=== PATIENT | female | born 1975 | race Caucasian/White ===

== ENCOUNTER 2021-11-14 13:44 | Outpatient (CLI) | payer BC, SELFPAY ==
--- NOTE | 2021-11-14 14:00 | CRLHL7_ITS ---
For Patients: As a result of the Cures Act, medical imaging exams and procedure reports are released immediately into your electronic medical record. You may view this report before your referring provider. If you have questions, please contact your health care provider. INDICATION: Venous varicosities. COMPARISON: None available TECHNIQUE: A duplex venous ultrasound exam was performed of the right lower extremity using sesay scale imaging, color Doppler and spectral Doppler analysis. Pre- and post compression images were obtained per site specific protocol. The size of the superficial veins were recorded, along with reflux times if applicable. FINDINGS: In the right lower extremity deep venous system, there is normal compressibility, color Doppler venous blood flow and augmentation within the common femoral vein, superficial femoral vein, popliteal vein, and posterior tibial veins. The greater and lesser saphenous veins of the right lower extremity are also patent and compressible with intact color Doppler venous blood flow. The greater saphenous vein measures 0.7 cm at the saphenofemoral junction where it is competent. The greater saphenous vein is competent throughout the thigh and calf. The lesser saphenous vein is competent throughout. The saphenopopliteal junction is not identified. IMPRESSION: 1. No deep or superficial venous thrombosis. 2. No venous insufficiency in the right lower extremity. Dictated by Too Ambrosio MD @ 11/14/2021 3:15:13 PM (Electronically Signed)
== END 2021-11-14 13:45 | disposition home or self-care (01) ==
PROVIDERS: PCP Family Medicine; Visit Provider Family Medicine
DX: I83.811 Varicose veins of right lower extremity with pain (principal)
CPT/HCPCS: 93971

== ENCOUNTER 2022-11-16 15:04 | Outpatient (CLI) | payer BC, SELFPAY | END 2022-11-16 15:05 | disposition home or self-care (01) | PROVIDERS: PCP Family Medicine; Visit Provider Family Medicine | DX: R53.83 Other fatigue (principal); E66.9 Obesity, unspecified; F41.9 Anxiety disorder, unspecified | CPT/HCPCS: 80053; 82306; 82607; 84443 ==

== ENCOUNTER 2024-10-11 21:52 | Emergency (ER) | payer BC, SELFPAY ==
--- OUTSIDE RECORDS SUMMARY | 2024-10-11 21:54 | XMS_ITS | Clinical Summary ---
Author Organization [facility] Address [address] [place] [address] Care Team Providers Care Rug Shampooer Name Role Phone Clinic, [facility] [place] [facility] Pro vider Allergies No known active allergies Medications No known medications Active Problems Problem Noted Date Diagnosed Date Varicose veins of lower extremity with pain 09/13 Resolved Problems Problem Noted Date Diagnosed Date Resolved Date Cholelithiasis 03/19/2014 02/21/2017 Immunizations Immunization Administration Dates Next Due Influenza, IIV3 (Age >=3 years) 02/03/2009 Influenza, IIV4 03/09/2019 Tdap 01/30/2013 Family History Medical History Relation Name Comments Diabetes Father Hypertension Father Thyroid Disease Father Diabetes Mother Hypertension Mother Relation Name Status Comments Father Mother Social History Tobacco Use Types Packs/Day Years Used Date Smoking Tobacco: Never Smokeless Tobacco: Never Tobacco Cessation:Counseling Given: Yes Alcohol Use Standard Drinks/Week Comments No 0 (1 standard drink = 0.6 oz pur e alcohol) Comments No Sex and Gender Information Value Date Recorded Sex Assigned at Not on file Legal Sex Female 7:05 AM BIG DATA DEVELOPER Gender Identity Not on file Sexual Orientation Not on file 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 Not on file Not on file Not on file Obstetrics History Last Filed Vital Signs Vital Sign Reading Time Taken Comments Blood Pressure 140/77 01/02/2021 1:45 PM CDT Pulse 76 01/02/2021 1:45 PM CDT Temperature 36.3 C (97.3 F) 01/02/2021 1:45 PM CDT Respiratory Rate 16 01/02/2021 1:45 PM CDT Oxygen Saturation 99% 01/02/2021 1:45 PM CDT Inhaled Oxygen Concentration - - Weight 79.4 kg (175 lb) 01/02/2021 1:45 PM CDT Height 158.8 cm (5' 2.5) 02/21/2017 11:09 AM CS T Body Mass Index 31.5 02/21/2017 11:09 AM BIG DATA DEVELOPER Plan of Treatment Health Maintenance Due Date Last Done Comments Depression screening for age 12+ 1989 HIV for age 15-65 1992 Hepatitis C screening for age 18-79 12/29/1995 Hepatitis B series for 19+ (1 of 3 - 19+ 3-dose series) 1996 BMI (ht and wt on same day) for age 18+ 02/21/2018 02/21/2017 Colonoscopy through age 75 2022 Lipids for age 45-75 2022 Mammogram for age 45-75 2022 Tetanus booster 01/30/2023 01/30/2013 Pap test for age 21-65 08/13/2023 , 08/12/2020, 11/29/2015, Additional history exists COVID-19 vaccine series ( season) 2023 06/17/2020, 05/20/2020 Influenza Vaccine (Season Ended) 2024 03/09/2019, 02/03/2009 Tdap Completed 01/30/2013 Pneumococcal series for age 6-49 Aged Out No longer eligible based on patient's age to complete this topic Procedures Procedure Name Priority Date/Time Associated Diagnosis Comments MULTI PUNCH OPERATOR THIN PREP PAP SCREEN IMAGED Routine 08/12/2020 9:30 AM CDT from Last 3 Months or Most Recently Relevant to Health Maintenance Results * MULTI PUNCH OPERATOR THIN PREP PAP SCREEN IMAGED (08/12/2020 9:30 AM CDT) Case Report Gynecologic Cytology Report Case: [id number] Authorizing Provider: Eliane Cade MD Collected: 08/12/2020 0930 Ordering Location: [facility] Received: 08/15/2020 0744 First Screen: Yodit Albarran Specimen: MULTI PUNCH OPERATOR ThinPrep Vial Screening, Cervical/Vaginal 08/22/2020 10:03 AM CDT [facility] INTERPRETATION/ RESULT NEGATIVE FOR INTRAEPITHELIAL LESION OR MALIGNANCY (NIL) (none) 08/22/2020 10:03 AM T [facility] at 1003 CDT SPECIMEN ADEQUACY Satisfactory for evaluation Endocervical component present 08/22/2020 10:03 AM CDT [facility] HPV REQUEST HPV and PAP 08/22/2020 10:03 AM CDT [facility] Date of LMP 11/29/2015 08/22/2020 10:03 AM CDT [facility] Last Pap Date 08/22/2020 10:03 AM T [facility] Comment:Normal Menstrual Status 08/22/2020 10:03 AM T [facility] Comment:1 year ago Additional Information 08/22/2020 10:03 AM T [facility] Comment: Interpreted at [facility], Central Laboratory - [address], [place] [address] Automated Review Successful 08/22/2020 10:03 AM T [facility] Comment:Specimen processed s uccessfully by automated appointment clerk device, ThinPrep Imaging System, [employer] ANCILLARY TESTING MULTI PUNCH OPERATOR HPV Ordered, Please see separate report 08/22/2020 10:03 AM T [facility] Note The pap test is a screening technique, not a diagnostic procedure. It is used primarily to screen for squamous cancers and precursor lesions. Published studies have shown that it is subject to both false negative and false positive results. The pap test should not be used as the sole means to diagnose or exclude pre-malignant and malignant lesions. 08/22/2020 10:03 AM T [facility] Other (Cervical/Vagina l) 08/12/2020 9:30 AM CDT 08/15/2020 7:44 AM CDT Eliane Cade MD PATHOLOGY/CYTOLOGY Final Result [facility] [address] [place] [address], from Last 3 Months or Most Recently Relevant to Health Maintenance Insurance [facility] Advance Directives * Full Code (Latest Code Status on File) Date Activated Date Inactivated Comments 03/30/2014 11:45 AM 03/30/2014 5:40 PM * Full Code Date Activated Date Inactivated Comments 03/30/2014 8:22 AM 03/30/2014 11:45 AM Care Teams Rug Shampooer Relationship Specialty Start Date End Date Clinic, [address] [address] PCP - General 11/26/06
[2024-10-11 21:57] VITALS: BP 169/102; PULSE 80; RESP 18; TEMP 35.8; O2SAT 98
--- NOTE | 2024-10-12 00:07 | ED.GENADULT ---
HPI - General Adult General Chief complaint: Extremity Pain/Injury, Lower Stated complaint: Leg Laceration Time Seen by Provider: 10/11/24 23:33 Source: patient Mode of arrival: ambulatory Limitations: no limitations History of Present Illness HPI narrative: 48-year-old female presenting today with a laceration to the anterior left palomino. Patient was in [place] lost her footing and fell forward hitting her palomino on a rock. Denies hitting head or losing consciousness. Last tetanus was in 2012. Related Data Previous Rx's ?Medication ?Instructions ?Recorded fluoxetine 10 mg capsule 10 mg PO QDAY #90 caps 11/16/22 cephalexin 500 mg capsule 500 mg PO TID 5 days #15 caps 10/12/24 Allergies Allergy/AdvReac Type Severity Reaction Status Date / Time No Known Drug Allergies Allergy Verified 10/09/24 10:03 Review of Systems Status of ROS: Reports: 6 or more systems reviewed and unremarkable except as noted in History and below [facility] Medical History Mixed stress and urge urinary incontinence ?N39.46 - Mixed incontinence (ICD-10) Obesity (BMI 35.0-39.9 without comorbidity) ?E66.9 - Obesity, unspecified (ICD-10) Right leg pain ?M79.604 - Pain in right leg (ICD-10) Anxiety ?F41.9 - Anxiety disorder, unspecified (ICD-10) Varicose veins of lower extremity ?I83.90 - Asymptomatic varicose veins of unspecified lower extremity (ICD-10) Pain in pelvis ?R10.2 - Pelvic and perineal pain (ICD-10) Gestational diabetes (2008) ?O24.419 - Gestational diabetes mellitus in , unspecified control (ICD-10) Surgical History Status post dilation and curettage (02/2020) ?Z98.890 - Other specified postprocedural states (ICD-10) History of vein stripping (2014) ?Z98.890 - Other specified postprocedural states (ICD-10) History of suburethral sling procedure (02/2020) ?Z98.890 - Other specified postprocedural states (ICD-10) History of cholecystectomy (2009) ?Z90.49 - Acquired absence of other specified parts of digestive tract (ICD-10) History of appendectomy (2010) ?Z90.49 - Acquired absence of other specified parts of digestive tract (ICD-10) Family History Mother Asthma Diabetes Father Diabetes High blood pressure Thyroid disease Son Epilepsy Other Family history of diabetes mellitus Social History Narrative: Does not drink alcohol from , 6 kids lives in [place] from [place], 2 disabled kids, 1with autism Non-smoker Patient is a homemaker. Smoking Status: Former smoker Exam Narrative: Exam Narrative: Well-nourished well-developed patient, anxious. Alert and oriented. Answers questions appropriately. Mood and affect are appropriate. Thoughts are goal oriented and rational. No tangential or magical thinking noted. Patient speaks in full sentences without needing to catch her breath. HEENT: Normocephalic atraumatic. Pupils are equally round reactive to light. Extraocular muscles are intact. Conjunctivae are moist without any icterus noted. Moist mucous membranes. Extremities: Bilateral lower extremities are without edema. Normal DP and PT pulses. Patient has a large laceration of the anterior palomino, V-shaped flap. She can move her ankle without difficulty. Normal DP and PT pulses. Laceration penetrates through the skin but does not penetrate through underlying structures. Skin: Well perfused. Const: Vital Signs, click to edit/add: Vital Signs - 24 hr 10/11/24 21:57 Temperature 96.5 F L Pulse Rate [Left P ulse Oximeter] 80 Respiratory Rate 18 Blood Pressure [Ri ght Upper Arm] 169/102 H Pulse Oximetry 98 Oxygen Delivery Me thod Room Air Course Course ED Course: Area was cleaned in the usual sterile manner and anesthetized with lidocaine. Three horizontal mattress sutures were placed at points of most stress, followed by 12 simple sutures with 3-0 Ethilon. Tetanus shot updated Vital Signs Vital signs: Initial Vital Signs Temperature 96.5 F L 10/11/24 21:57 Temperature Source Temporal Artery Scan 10/11/24 21:57 Pulse Rate 80 10/11/24 21:57 Pulse Rhythm Regular 10/11/24 21:57 Respiratory Rate 18 10/11/24 21:57 Blood Pressure 169/102 H 10/11/24 21:57 Blood Pressure Mean 124 H 10/11/24 21:57 Blood Pressure Position Sitting 10/11/24 21:57 Pulse Oximetry 98 10/11/24 21:57 Oxygen Delivery Method Room Air 10/11/24 21:57 Vital Signs Temperature 96.5 F L 10/11/24 21:57 Pulse Rate 80 10/11/24 21:57 Respiratory Rate 18 10/11/24 21:57 Blood Pressure 169/102 H 10/11/24 21:57 Pulse Oximetry 98 10/11/24 21:57 Oxygen Delivery Method Room Air 10/11/24 21:57 Temperature 96.5 F L 10/11/24 21:57 Pulse Rate 80 10/11/24 21:57 Respiratory Rate 18 10/11/24 21:57 Blood Pressure 169/102 H 10/11/24 21:57 Pulse Oximetry 98 10/11/24 21:57 Oxygen Delivery Method Room Air 10/11/24 21:57 Medical Decision Making MDM Narrative Medical decision making narrative: 48-year-old female large laceration to the anterior palomino sutured in the ED. Will treat the patient with a Keflex t.i.d. for 5 days. 8 tablets of [place] sent home with the patient. We discussed wound hygiene, scarring, signs of infection. Discharge Plan Discharge Clinical Impression: Laceration Patient Disposition: Home, Self-Care Condition: Improved Additional Instructions: Keep wound clean and dry. Do not soak such as taking baths, swimming. Follow-up in approximately 10-14 days for suture removal with your primary care provider. Watch for signs and symptoms of infection including increasing redness of the area, purulent drainage, or fever. If this occurs follow-up right away with your doctor or return to the ER. Elevate leg as much as possible over the next 48 hours. Change dressing daily. Take all antibiotics as prescribed. Can take 1st dose tomorrow. This medication will be sent to your pharmacy. Take pain medications as needed. Will be sent home with hydrocodone-acetaminophen. This is a narcotic pain medication that can cause constipation, dizziness and increased risk of fall. Do not operate heavy machine use when you take this medication. If you take this for more than 2 days, consider taking daily MiraLax to avoid constipation. A tablets of [place] sent to [facility]. Prescriptions: New cephalexin 500 mg capsule 500 mg PO TID 5 Days Qty: 15 0RF No Action fluoxetine 10 mg capsule 10 mg PO QDAY Qty: 90 0RF Follow Up/Referrals: Eliane Cade MD [Primary Care Provider, Family Practice] Stand Alone Forms: [employer] Info Instructions
--- OUTSIDE RECORDS SUMMARY | 2024-10-12 00:15 | XMS_ITS | Clinical Summary ---
Author Organization [facility] Address [address] [place] [address] Care Team Providers Care National Sales Director Name Role Phone Clinic, [facility] [place] [facility] Pro vider Allergies No known [...] on file Legal Sex Female 7:05 AM CROSSING GATEMAN Gender Identity Not on file Sexual Orientation [...] Body Mass Index 31.5 02/21/2017 11:09 AM CROSSING GATEMAN Plan of Treatment Health Maintenance Due Date [...] Procedure Name Priority Date/Time Associated Diagnosis Comments EXPERIENCED TRUCK DRIVER THIN PREP PAP SCREEN IMAGED Routine 08/12/2020 9:30 AM CDT from Last 3 Months or Most Recently Relevant to Health Maintenance Results * EXPERIENCED TRUCK DRIVER THIN PREP PAP SCREEN IMAGED (08/12/2020 9:30 AM CDT) Case Report Gynecologic Cytology Report Case: [id number] Authorizing Provider: Eliane Cade MD Collected: 08/12/2020 0930 Ordering Location: [facility] Received: 08/15/2020 0744 First Screen: Yodit Albarran Specimen: EXPERIENCED TRUCK DRIVER ThinPrep Vial Screening, Cervical/Vaginal 08/22/2020 10:03 AM CDT [facility] INTERPRETATION/ RESULT NEGATIVE FOR INTRAEPITHELIAL LESION OR MALIGNANCY (NIL) (none) 08/22/2020 10:03 AM T [facility] at 1003 CDT SPECIMEN ADEQUACY Satisfactory for evaluation Endocervical component present 08/22/2020 10:03 AM CDT [facility] HPV REQUEST HPV and PAP 08/22/2020 10:03 AM CDT [facility] Date of LMP 11/29/2015 08/22/2020 10:03 AM CDT [facility] Last Pap Date 08/22/2020 10:03 AM T [facility] Comment:Normal Menstrual Status 08/22/2020 10:03 AM T [facility] Comment:1 year ago Additional Information 08/22/2020 10:03 AM T [facility] Comment: Interpreted at [facility], [facility] Laboratory - [address], [place] [address] Automated Review Successful 08/22/2020 10:03 AM T [facility] Comment:Specimen processed s uccessfully by automated tobacco flavorer device, ThinPrep Imaging System, [employer] ANCILLARY TESTING EXPERIENCED TRUCK DRIVER HPV Ordered, Please see separate report 08/22/2020 10:03 AM T [facility] Note The pap test is a [...] and malignant lesions. 08/22/2020 10:03 AM T [facility] Other (Cervical/Vagina l) 08/12/2020 9:30 AM CDT 08/15/2020 7:44 AM CDT Eliane Cade MD PATHOLOGY/CYTOLOGY Final Result [facility] [address] [place] [address], from Last 3 Months or Most Recently Relevant to Health Maintenance Insurance [facility] Advance Directives * Full Code (Latest Code Status on File) Date Activated Date Inactivated Comments 03/30/2014 11:45 AM 03/30/2014 5:40 PM * Full Code Date Activated Date Inactivated Comments 03/30/2014 8:22 AM 03/30/2014 11:45 AM Care Teams National Sales Director Relationship Specialty Start Date End Date Clinic, [address] [address] PCP - General 11/26/06
[2024-10-12] MEDS: TETANUS/DIPHTH/PERTUSSIS 0.5 ML SYRINGE IM (00:46)
[2024-10-12] MEDS: lidocaine HCL 2 % MULTIDOSE 20 ML VIAL INJECTION (01:03)
== END 2024-10-12 00:50 | disposition home or self-care (01) ==
PROVIDERS: Emergency Provider Family Medicine; PCP Family Medicine
DX: S81.812A Laceration without foreign body, left lower leg, initial encounter (principal); W22.09XA Striking against other stationary object, initial encounter
CPT/HCPCS: 12001; 90471; 90715; 99283; 99284

== ENCOUNTER 2024-10-12 17:24 | Emergency (ER) | payer BC, SELFPAY ==
[2024-10-12 17:29] VITALS: BP 154/85; PULSE 65; RESP 18; TEMP 36.4; O2SAT 98; BMI 30.9
--- NOTE | 2024-10-12 19:19 | ED_ITS ---
HPI - Extremity Injury (Lower) General Time Seen by Provider: 19:19 Date Seen: 10/12/24 Chief Complaint: Extremity Pain/Injury, Lower Stated Complaint: pain in left leg/Revisit Time Seen by Provider: 10/12/24 19:18 Source: patient, RN notes reviewed and old records reviewed Mode of arrival: ambulatory Limitations: no limitations History of Present Illness HPI Narrative: This very pleasant 48-year-old female is returning wanting crutches, needing pain management and a work note. She was in the ER yesterday, had a laceration repaired on her left lower extremity. She was given 8 [place] and started on Keflex, had a laceration repaired after a fall in the [place] and hitting a rock with her anterior lower tibia. She felt a little warm this morning but had an episode of vomiting. She does not have any Tylenol or ibuprofen at home. She has went through all the [place]. She has not had a fever after that, is not febrile here. She has not taken the dressing down yet. It does hurt to walk. She is wanting a note for work as she works at [employer] and is walking a lot. Related Data Previous Rx's ?Medication ?Instructions ?Recorded fluoxetine 10 mg capsule 10 mg PO QDAY #90 caps 11/16 cephalexin 500 mg capsule 500 mg PO TID 5 days #15 cap s 10/12/24 Allergies Allergy/AdvReac Type Severity Reaction Status Date / Time No Known Drug Allergies Allergy Verified 10/09/24 10:03 Review of Systems Narrative: As per HPI. [facility] Medical History Mixed stress and urge urinary incontinence ?N39.46 - Mixed incontinence (ICD-10) Obesity (BMI 35.0-39.9 without comorbidity) ?E66.9 - Obesity, unspecified (ICD-10) Right leg pain ?M79.604 - Pain in right leg (ICD-10) Anxiety ?F41.9 - Anxiety disorder, unspecified (ICD-10) Varicose veins of lower extremity ?I83.90 - Asymptomatic varicose veins of unspecified lower extremity (ICD-10) Pain in pelvis ?R10.2 - Pelvic and perineal pain (ICD-10) Gestational diabetes (2009) ?O24.419 - Gestational diabetes mellitus in , unspecified control (I CD-10) Surgical History Status post dilation and curettage (02/2020) ?Z98.890 - Other specified postprocedural states (ICD-10) History of vein stripping (2014) ?Z98.890 - Other specified postprocedural states (ICD-10) History of suburethral sling procedure (02/2020) ?Z98.890 - Other specified postprocedural states (ICD-10) History of cholecystectomy (2009) ?Z90.49 - Acquired absence of other specified parts of digestive tract (ICD- 10) History of appendectomy (2009) ?Z90.49 - Acquired absence of other specified parts of digestive tract (ICD- 10) Family History Mother Asthma Diabetes Father Diabetes High blood pressure Thyroid disease Son Epilepsy Other Family history of diabetes mellitus Social History Narrative: Does not drink alcohol from , 6 kids lives in [place] from [place], 2 disabled kids, 1with autism Non-smoker Patient is a homemaker. Smoking Status: Former smoker Do you use any of these nicotine containing products: None How often do you have a drink containing alcohol: never How often do you have six or more drinks on one occasion: Never AUDIT-C Alcohol total score: 0 Non-prescribed substance use: denies use Exam Const: Vital Signs, click to edit/add: Vital Signs - 24 hr 10/12/24 17:29 Temperature 97.6 F Pulse Rate [Pulse Oximeter] 65 Respiratory Rate 18 Blood Pressure [Ri ght Upper Arm] 154/85 H Pulse Oximetry 98 Oxygen Delivery Me thod Room Air This 48-year-old female is alert, interactive, no apparent distress. She is lying in the bed in exam room 3. CV regular rate and rhythm, no murmur. Lungs clear, breathing easy on room air. Face atraumatic. She has an Dwight wrap around her mid lower extremity on the left. This was taken down. The bandaging underneath was taken down. She has a V flap repaired with sutures. There is some minimal tissue swelling, no significant erythema, no drainage, mild tenderness. Distal CMS is intact. Documenting provider has reviewed patient's vital signs: yes Course Course ED Course: Reviewed with her that the symptoms this morning is likely a side effect of the narcotics. I think at this point it is reasonable to transition to Tylenol and ibuprofen. Will give her 600 mg oral ibuprofen here and she will need to get some Tylenol ibuprofen. We will provide crutches to use for decreasing pain with weight-bearing. She can wean off them as able. We will re-dress the wound with bacitracin. She can start to take this off tomorrow in just use bandaging during the day. I will give her note to be off work the next 3 days to allow this some time for healing. Vital Signs Vital signs: Initial Vital Signs Temperature 97.6 F 10/12/24 17:29 Temperature Source Temporal Artery Scan 10/12/24 17:29 Pulse Rate 65 10/12/24 17:29 Pulse Rhythm Regular 10/12/24 17:29 Respiratory Rate 18 10/12/24 17:29 Blood Pressure 154/85 H 10/12/24 17:29 Blood Pressure Mean 108 H 10/12/24 17:29 Blood Pressure Position Sitting 10/12/24 17:29 Pulse Oximetry 98 10/12/24 17:29 Oxygen Delivery Method Room Air 10/12/24 17:29 Vital Signs Temperature 97.6 F 10/12/24 17:29 Pulse Rate 65 10/12/24 17:29 Respiratory Rate 18 10/12/24 17:29 Blood Pressure 154/85 H 10/12/24 17:29 Pulse Oximetry 98 10/12/24 17:29 Oxygen Delivery Method Room Air 10/12/24 17:29 Temperature 97.6 F 10/12/24 17:29 Pulse Rate 65 10/12/24 17:29 Respiratory Rate 18 10/12/24 17:29 Blood Pressure 154/85 H 10/12/24 17:29 Pulse Oximetry 98 10/12/24 17:29 Oxygen Delivery Method Room Air 10/12/24 17:29 Medications Administered Medications: Generic Name Dose Route Start Last Admin Trade Name Freq PRN Reason Stop Dose Admin Bacitracin Zinc 1 each 10/12/24 19:36 10/12/24 19:42 Bacitracin 0.9 Gm Packet TOPICAL 10/12/24 19:37 1 each ONCE ONE Administration Ibuprofen 600 mg 10/12/24 19:36 10/12/24 19:42 Ibuprofen 200 Mg Tablet PO 10/12/24 19:37 600 mg ONCE ONE Administration Discharge Plan Discharge Clinical Impression: Laceration Patient Disposition: Home, Self-Care Condition: Stable Instructions: Laceration (ED) Additional Instructions: Can use crutches as needed to minimize pain with walking. You can decrease use of the crutches as you feel less pain with ambulation. Continue with dressing changes and wound follow-up as advised at your ER visit yesterday, no changes made to that plan. You need to take your antibiotic as you were prescribed yesterday. For pain management, Tylenol 1000 mg 3 times a day as needed. Ibuprofen 600 mg up to 4 times a day as needed, take ibuprofen with food to protect your stomach. You really need to watch for wound infection as advised yesterday, if there is any concern please seek re-evaluation. Do recommend elevating in trying to minimize activity over the next few days to allow for initial wound healing and decrease swelling. Have given you note to be out of work for the next 3 days, if you need longer you will need to follow up in clinic. Prescriptions: No Action fluoxetine 10 mg capsule 10 mg PO QDAY Qty: 90 0RF cephalexin 500 mg capsule 500 mg PO TID 5 Days Qty: 15 0RF Follow Up/Referrals: Eliane Cade MD [Primary Care Provider, Family Practice] Stand Alone Forms: Work/School Release, [facility] Info Instructions
[2024-10-12] MEDS: IBUPROFEN 200 MG TABLET 600 MG PO (19:42)
[2024-10-12] MEDS: BACITRACIN 0.9 GM PACKET 1 EACH TOPICAL (19:42)
== END 2024-10-12 20:00 | disposition home or self-care (01) ==
LOC: ED 19:56
PROVIDERS: Emergency Provider Family Medicine; PCP Family Medicine
DX: S81.812A Laceration without foreign body, left lower leg, initial encounter (principal); W16.112A Fall into natural body of water striking water surface causing other injury, initial encounter
CPT/HCPCS: 99282; 99283; A9270

== ENCOUNTER 2024-10-15 10:47 | Outpatient (CLI) | payer BC, SELFPAY | END 2024-10-15 10:48 | disposition home or self-care (01) | LOC: NFLDREF 10-19 01:43 | PROVIDERS: PCP Family Medicine; Referring Provider Family Medicine; Visit Provider Obstetrics & Gynecology | DX: R32 Unspecified urinary incontinence (principal) | CPT/HCPCS: 87086 ==

== ENCOUNTER 2024-10-19 13:05 | Emergency (ER) | payer BC, SELFPAY ==
--- OUTSIDE RECORDS SUMMARY | 2024-10-19 13:07 | XMS_ITS | Clinical Summary ---
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 Gender Identity Not on file Sexual Orientation [...] Body Mass Index 31.5 02/21/2017 11:09 AM QUALITY CONTROL MANAGER Plan of Treatment Health Maintenance Due Date [...] 11/29/2015, Additional history exists COVID-19 vaccine series (2023- season) 2023 06/17/2020, 05/20/2020 Influenza Vaccine (#1) 2024 03/09/2019, 2008 Pneumococcal series for age 6-49 Aged Out No longer eligible based on patient's age to complete this topic Procedures Procedure Name Priority Date/Time Associated Diagnosis Comments ADVANCED CLINICAL SPECIALIST THIN PREP PAP SCREEN IMAGED Routine 08/12/2020 9:30 AM CDT from Last 3 Months or Most Recently Relevant to Health Maintenance Results * ADVANCED CLINICAL SPECIALIST THIN PREP PAP SCREEN IMAGED (08/12/2020 9:30 AM CDT) Case Report Gynecologic Cytology Report Case: [id number] Authorizing Provider: Eliane Cade MD Collected: 08/12/2020 0930 Ordering Location: [facility] Received: 08/15/2020 0744 First Screen: Yodit Albarran Specimen: ADVANCED CLINICAL SPECIALIST ThinPrep Vial Screening, Cervical/Vaginal 08/22/2020 10:03 AM CDT [facility] INTERPRETATION/ RESULT NEGATIVE FOR INTRAEPITHELIAL LESION OR MALIGNANCY (NIL) (none) 08/22/2020 10:03 AM CDT [facility] at 1003 CDT SPECIMEN ADEQUACY Satisfactory for evaluation Endocervical component present 08/22/2020 10:03 AM CDT [facility] HPV REQUEST HPV and PAP 08/22/2020 10:03 AM CDT [facility] Date of LMP 11/29/2015 08/22/2020 10:03 AM CDT [facility] Last Pap Date 08/22/2020 10:03 AM CDT [facility] Comment:Normal Menstrual Status 08/22/2020 10:03 AM CDT [facility] Comment:1 year ago Additional Information 08/22/2020 10:03 AM T [facility] Comment: Interpreted at [facility] Laboratory - [address] [place] [address] Automated Review Successful 08/22/2020 10:03 AM T [facility] Comment:Specimen processed s uccessfully by automated bottle sorter device, ThinPrep Imaging System, [employer] ANCILLARY TESTING ADVANCED CLINICAL SPECIALIST HPV Ordered, Please see separate report 08/22/2020 10:03 AM T [facility] Note The pap test is a screening technique, not a diagnostic procedure. It is used primarily to screen for squamous cancers and precursor lesions. Published studies have shown that it is subject to both false negative and false positive results. The pap test should not be used as the sole means to diagnose or exclude pre-malignant and malignant lesions. 08/22/2020 10:03 AM CDT [facility] Other (Cervical/Vagina l) 08/12/2020 9:30 AM CDT 08/15/2020 7:44 AM CDT Eliane Cade MD PATHOLOGY/CYTOLOGY Final Result [facility] [address] [place] [address], from Last 3 Months or Most Recently Relevant to Health Maintenance Insurance [facility] [place] [address] Advance Directives * Full Code (Latest Code Status on File) Date Activated Date Inactivated Comments 03/30/2014 11:45 AM 03/30/2014 5:40 PM * Full Code Date Activated Date Inactivated Comments 03/30/2014 8:22 AM 03/30/2014 11:45 AM Care Teams Home Energy Inspector Relationship Specialty Start Date End Date Clinic, [address] [address] PCP - General 11/26/06
[2024-10-19 13:40] VITALS: BP 126/86; PULSE 70; RESP 16; TEMP 36.4; O2SAT 98; BMI 33.7
--- NOTE | 2024-10-19 16:28 | ED.GENADULT ---
HPI - General Adult General Date Seen: 10/19/24 Chief complaint: Extremity Pain/Injury, Lower Stated complaint: Hurt left Ankle Time Seen by Provider: 10/19/24 16:16 History of Present Illness HPI narrative: Patient is a 48-year-old woman who was seen here 7 days ago for a laceration on her left [place]. This was repaired with sutures. She presented to the ER shortly after initial visit needing a work note, crutches, and requesting additional [place]. She was given 8 at discharge in had used all of them. She was advised to use ibuprofen, was given crutches and was given work note. She comes in today saying that she is back to work and is on her feet a lot and now her leg is hurting more. She would like another work note so that she is not on her feet as much. She also is wondering about something additional for pain. 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 Related Data Previous Rx's ?Medication ?Instructions ?Recorded fluoxetine 10 mg capsule 10 mg PO QDAY #90 caps 11/16/22 cephalexin 500 mg capsule 500 mg PO TID 5 days #15 caps 10/12/24 Allergies Allergy/AdvReac Type Severity Reaction Status Date / Time No Known Drug Allergies Allergy Verified 10/19/24 13:39 [facility] Medical History Mixed stress and urge urinary incontinence ?N39.46 - Mixed incontinence (ICD-10) Obesity (BMI 35.0-39.9 without comorbidity) ?E66.9 - Obesity, unspecified (ICD-10) Right leg pain ?M79.604 - Pain in right leg (ICD-10) Anxiety ?F41.9 - Anxiety disorder, unspecified (ICD-10) Varicose veins of lower extremity ?I83.90 - Asymptomatic varicose veins of unspecified lower extremity (ICD-10) Pain in pelvis ?R10.2 - Pelvic and perineal pain (ICD-10) Gestational diabetes (2008) ?O24.419 - Gestational diabetes mellitus in , unspecified control (ICD-10) Surgical History Status post dilation and curettage (02/2020) ?Z98.890 - Other specified postprocedural states (ICD-10) History of vein stripping (2014) ?Z98.890 - Other specified postprocedural states (ICD-10) History of suburethral sling procedure (02/2020) ?Z98.890 - Other specified postprocedural states (ICD-10) History of cholecystectomy (2010) ?Z90.49 - Acquired absence of other specified parts of digestive tract (ICD-10) History of appendectomy (2010) ?Z90.49 - Acquired absence of other specified parts of digestive tract (ICD-10) Family History Mother Asthma Diabetes Father Diabetes High blood pressure Thyroid disease Son Epilepsy Other Family history of diabetes mellitus Social History Narrative: Does not drink alcohol from , 6 kids lives in [place] from [place], 2 disabled kids, 1with autism Non-smoker Patient is a homemaker. Smoking Status: Former smoker Do you use any of these nicotine containing products: None How often do you have a drink containing alcohol: never How often do you have six or more drinks on one occasion: Never AUDIT-C Alcohol total score: 0 Non-prescribed substance use: denies use Exam Narrative: Exam Narrative: Vital signs reviewed In general, alert, nontoxic woman. Extremities: Examination of the left leg shows an Dwight wrap in place. There is trace edema below this on the ankle. The laceration itself is healing well. No surrounding erythema, no drainage. Const: Vital Signs, click to edit/add: Vital Signs - 24 hr 10/19/24 13:40 Temperature 97.5 F L Pulse Rate [Pulse Oximeter] 70 Respiratory Rate 16 Blood Pressure [Ri ght Upper Arm] 126/86 Pulse Oximetry 98 Oxygen Delivery Me thod Room Air Course Course ED Course: We discussed pain management, at this time I recommended ibuprofen 400 mg plus Tylenol 1000 mg 3 times daily. Elevate as able. I did give her work note for the next week to be on light duty with minimizing how much she is walking. Sutures are due to come out 2 days from now, she is worried that it will not heal by then. I do think the edges are clearly going to be ready, there is 1 spot in the middle that maybe needs another day or 2. Advise she should not wait much beyond 3-5 maximum of 4 days before having the sutures taken out as I think at that point they will start to become somewhat buried. Reassured her there is no evidence of infection or other complication at this time. Vital Signs Vital signs: Initial Vital Signs Temperature 97.5 F L 10/19/24 13:40 Temperature Source Temporal Artery Scan 10/19/24 13:40 Pulse Rate 70 10/19/24 13:40 Respiratory Rate 16 10/19/24 13:40 Blood Pressure 126/86 10/19/24 13:40 Blood Pressure Mean 99 10/19/24 13:40 Pulse Oximetry 98 10/19/24 13:40 Oxygen Delivery Method Room Air 10/19/24 13:40 Vital Signs Temperature 97.5 F L 10/19/24 13:40 Pulse Rate 70 10/19/24 13:40 Respiratory Rate 16 10/19/24 13:40 Blood Pressure 126/86 10/19/24 13:40 Pulse Oximetry 98 10/19/24 13:40 Oxygen Delivery Method Room Air 10/19/24 13:40 Temperature 97.5 F L 10/19/24 13:40 Pulse Rate 70 10/19/24 13:40 Respiratory Rate 16 10/19/24 13:40 Blood Pressure 126/86 10/19/24 13:40 Pulse Oximetry 98 10/19/24 13:40 Oxygen Delivery Method Room Air 10/19/24 13:40 Discharge Plan Discharge Prescriptions: No Action fluoxetine 10 mg capsule 10 mg PO QDAY Qty: 90 0RF cephalexin 500 mg capsule 500 mg PO TID 5 Days Qty: 15 0RF Follow Up/Referrals: Eliane Cade MD [Primary Care Provider, Family Practice]
[2024-10-19 16:55] VITALS: BP 112/71; PULSE 74; RESP 16; O2SAT 95
== END 2024-10-19 17:04 | disposition home or self-care (01) ==
PROVIDERS: Emergency Provider Emergency Medicine; PCP Family Medicine
DX: Z48.89 Encounter for other specified surgical aftercare (principal)
CPT/HCPCS: 99282; 99283

== ENCOUNTER 2025-01-11 08:31 | Outpatient (CLI) | payer BC, SELFPAY | END 2025-01-11 08:32 | disposition home or self-care (01) | PROVIDERS: PCP Family Medicine; Visit Provider Family Medicine | DX: R04.0 Epistaxis (principal) | CPT/HCPCS: 80048; 85025; 85730 ==

== ENCOUNTER 2025-02-08 16:11 | Outpatient (CLI) | payer BC, SELFPAY | END 2025-02-08 16:12 | disposition home or self-care (01) | PROVIDERS: PCP Family Medicine; Visit Provider Family Medicine | DX: E55.9 Vitamin D deficiency, unspecified (principal); Z13.6 Encounter for screening for cardiovascular disorders | CPT/HCPCS: 80061; 82306 ==

== ENCOUNTER 2025-02-15 10:08 | Outpatient (CLI) | payer BC, SELFPAY ==
--- NOTE | 2025-02-15 11:13 | P.ANES_ITS ---
Anesthesia Charges Start Date/Time Anesthesia Start Date: 02/15/25 Anesthesia Start Time: 10:48 Stop Date/Time Anesthesia Stop Date: 02/15/25 Anesthesia Stop Time: 11:10 Coding CPT Codes CPT Codes: GAB LWR INTST SCR COLSC - 82984 ([id number]) P2 - PATIENT W/MILD SYST DISEASE, QK - WILD LIFE PHOTOGRAPHER 2-4 CNCRNT ANES PROC
--- NOTE | 2025-02-15 11:13 | W.ANESCHARGE ---
Anesthesia Charges Start Date/Time Anesthesia Start Date: 02/15/25 Anesthesia Start Time: 10:48 Stop Date/Time Anesthesia Stop Date: 02/15/25 Anesthesia Stop Time: 11:10 Coding CPT Codes CPT Codes: GAB LWR INTST SCR COLSC - 95637 ([id number]) P2 - PATIENT W/MILD SYST DISEASE, QK - SPECIAL WEAPONS UNIT OFFICER 2-4 CNCRNT ANES PROC
--- NOTE | 2025-02-15 11:31 | P.ANES_ITS ---
Anesthesia Charges Start Date/Time Anesthesia Start Date: 02/15/25 Anesthesia Start Time: 10:48 Stop Date/Time Anesthesia Stop Date: 02/15/25 Anesthesia Stop Time: 11:10 Coding CPT Codes CPT Codes: GAB LWR INTST SCR COLSC - 98996 ([id number]) QK - FABRICATOR FOAM RUBBER 2-4 CNCRNT GAB PROC, QX - RECOVERY OPERATOR HELPER SVC W/ MD MED DIRECTION, P2 - PATIENT W/MILD SYST DISEASE
--- NOTE | 2025-02-15 11:31 | W.ANESCHARGE ---
Anesthesia Charges Start Date/Time Anesthesia Start Date: 02/15/25 Anesthesia Start Time: 10:48 Stop Date/Time Anesthesia Stop Date: 02/15/25 Anesthesia Stop Time: 11:10 Coding CPT Codes CPT Codes: GAB LWR INTST SCR COLSC - 72379 ([id number]) QK - GORE INSERTER 2-4 CNCRNT GAB PROC, QX - CAT SCANNER OPERATOR SVC W/ MD MED DIRECTION, P2 - PATIENT W/MILD SYST DISEASE
== END 2025-02-15 10:09 | disposition home or self-care (01) ==
LOC: OP CLINIC 10:10
PROVIDERS: PCP Family Medicine; Visit Provider Internal Medicine
DX: Z12.11 Encounter for screening for malignant neoplasm of colon (principal)
CPT/HCPCS: 00812; 45378; T1013; J2704